=== PATIENT | male | born 1940 | race Caucasian/White ===

== ENCOUNTER 2017-10-21 11:48 | Emergency (ER) | payer OTHER ==
[~2017-10-21] VITALS: Ht 170.2 cm; Wt 93.2 kg
[~2017-10-21 11:48] MED LIST: KEFLEX500 MG PO
[2017-10-21] MEDS ORDERED: KEFLEX500 MG PO (13:08)
[2017-10-21 13:34] VITALS: BP 151/64
== END 2017-10-21 13:35 | disposition home or self-care (01) ==
LOC: EME 11:48
DX: L03.115 Cellulitis of right lower limb (principal); I10 Essential (primary) hypertension; J44.9 Chronic obstructive pulmonary disease, unspecified; K21.9 Gastro-esophageal reflux disease without esophagitis; F32.9 Major depressive disorder, single episode, unspecified; F17.200 Nicotine dependence, unspecified, uncomplicated; Z85.9 Personal history of malignant neoplasm, unspecified; Z88.8 Allergy status to other drugs, medicaments and biological substances
CPT/HCPCS: 99281; 99284

== ENCOUNTER → 2017-12-20 | Outpatient (CLI) | payer MEDICARE, OTHER | END | disposition home or self-care (01) | LOC: CDC 12:15 | DX: Z01.810 Encounter for preprocedural cardiovascular examination (principal); R22.1 Localized swelling, mass and lump, neck; I44.0 Atrioventricular block, first degree; I45.10 Unspecified right bundle-branch block; R94.31 Abnormal electrocardiogram [ECG] [EKG] | CPT/HCPCS: 93000 ==

== ENCOUNTER 2017-12-25 14:10 | Emergency (ER) | payer OTHER ==
[~2017-12-25] VITALS: Ht 172.7 cm; Wt 91.1 kg
[2017-12-25 14:38] LABS: HEMATOCRIT 37.7 % (38.0-50.0); HEMOGLOBIN 13.1 G/DL (12.5-16.6); MCH 30.1 PG (29.0-34.0); MCHC 34.7 G/DL (30.0-36.0); MCV 86.7 FL (86-99); PLATELET COUNT 230 K/uL (156-360); RBC DIS.WIDTH-SD 41.1 % (39-53); RED BLOOD COUNT 4.35 M/uL (4.00-5.50); WHITE BLOOD COUNT 6.6 K/uL (4.1-10.2)
[2017-12-25 14:47] LABS: CHLORIDE 104 mEq/L (99-109); POTASSIUM 3.8 mEq/L (3.7-5.4); SODIUM 139 mEq/L (136-147)
[2017-12-25 14:48] LABS: GLUCOSE 97 mg/dL (70-99)
[2017-12-25 14:52] LABS: GFR ESTIMATE (CALCULATED) > 59 mL/min/ (58.99-99999)
[2017-12-25 14:53] LABS: UREA NITROGEN (BUN) 25 mg/dL (9-23)
[2017-12-25 16:16] LABS: APPEARANCE CLEAR ((CLEAR)); BILIRUBIN NEGATIVE; BLOOD SMALL; COLOR YELLOW ((YELLOW)); GLUCOSE (STRIP) NEGATIVE; KETONES NEGATIVE; LEUKOCYTES NEGATIVE; NITRITE NEGATIVE; PROTEIN (STRIP) 30; SPECIFIC GRAVITY 1.055 (1.000-1.030); UROBILINOGEN 0.2 MG/DL (0.2-1.0)
[2017-12-25 16:22] LABS: BACTERIA NONE SEEN /HPF; EPITHELIAL CELLS NONE SEEN /HPF; MUCUS NONE SEEN /LPF; RED BLOOD CELLS 0-5 /HPF (0-5); UCUL ADDED? NO; WHITE BLOOD CELLS 0-5 /HPF (0-5)
[2017-12-25] MEDS ORDERED: MOTRIN800 MG PO (17:04)
[2017-12-25] MEDS ORDERED: PREDNISONE20 MG PO (17:04)
[2017-12-25] MEDS ORDERED: FLEXERIL10 MG PO (17:04)
[2017-12-25] MEDS ORDERED: LIDODERM 5% P1 PATCH TD (17:04)
[2017-12-25 17:20] VITALS: BP 146/70
[2017-12-27] MEDS ORDERED: LO-DOSE ASPIRIN81 M1 PO (13:58)
[2017-12-27] MEDS ORDERED: ARICEPT5 MG PO (13:58)
[2017-12-27] MEDS ORDERED: CENTRUM SILVER1 EAC3 PO (13:59)
[2017-12-27] MEDS ORDERED: ODOR FREE GARL1 EACH PO (13:59)
[2017-12-27] MEDS ORDERED: FISH OIL 1,0001 EAC7 PO (13:59)
[2017-12-27] MEDS ORDERED: VASOTEC10 MG PO (13:59)
[2017-12-27] MEDS ORDERED: HYDROCHLOROTHIA25 MG PO (14:00)
[2017-12-27] MEDS ORDERED: LIPITOR40 MG PO (14:01)
[2017-12-27] MEDS ORDERED: LOPRESSOR100 M1 PO (14:02)
== END 2017-12-25 17:23 | disposition home or self-care (01) ==
LOC: EME 14:10
PROVIDERS: Nurse Practitioner Family
DX: M54.41 Lumbago with sciatica, right side (principal); S00.522A Blister (nonthermal) of oral cavity, initial encounter; J44.9 Chronic obstructive pulmonary disease, unspecified; K21.9 Gastro-esophageal reflux disease without esophagitis; I10 Essential (primary) hypertension; R73.03 Prediabetes; F32.9 Major depressive disorder, single episode, unspecified; F17.200 Nicotine dependence, unspecified, uncomplicated; Z88.8 Allergy status to other drugs, medicaments and biological substances
CPT/HCPCS: 71046; 80048; 81003; 85027; 99281; 99284; J1885; J7512

== ENCOUNTER 2017-12-31 05:14 | Day surgery (SDC) | payer OTHER ==
[~2017-12-31] VITALS: Ht 170.2 cm; Wt 91.6 kg
[~2017-12-31 05:14] MED LIST changes: +ARICEPT5 MG PO; +CENTRUM SILVER1 EAC3 PO; +FISH OIL 1,0001 EAC7 PO; +FLEXERIL10 MG PO; +HYDROCHLOROTHIA25 MG PO; +LIDODERM 5% P1 PATCH TD; +LIPITOR40 MG PO; +LO-DOSE ASPIRIN81 M1 PO; +LOPRESSOR100 M1 PO; +MOTRIN800 MG PO; +ODOR FREE GARL1 EACH PO; +PREDNISONE20 MG PO; +VASOTEC10 MG PO
[2017-12-31 05:50] VITALS: BP 163/88
[2017-12-31 10:16] VITALS: BP 151/70
== END 2017-12-31 10:32 | disposition home or self-care (01) ==
LOC: SDC
PROC: 0JB40ZZ Excision of Right Neck Subcutaneous Tissue and Fascia, Open Approach (ICD-10-PCS; principal; 2017-12-31)
DX: D17.1 Benign lipomatous neoplasm of skin and subcutaneous tissue of trunk (principal); F17.200 Nicotine dependence, unspecified, uncomplicated; Z80.0 Family history of malignant neoplasm of digestive organs; Z86.010 Personal history of colon polyps; I25.10 Atherosclerotic heart disease of native coronary artery without angina pectoris; E11.9 Type 2 diabetes mellitus without complications; I10 Essential (primary) hypertension; Z79.82 Long term (current) use of aspirin
CPT/HCPCS: 88304; J0131; J0690; J2250; J3010